=== PATIENT | female | born 1965 ===

== ENCOUNTER 2024-04-09 06:11 | Day surgery (SDC) | payer OTHER, SELFPAY | END 2024-04-09 09:37 | disposition home or self-care (01) | LOC: GI 06:11 | PROVIDERS: ATTENDING PHYSICIAN Internal Medicine | DX: Z12.11 Encounter for screening for malignant neoplasm of colon (principal); D12.7 Benign neoplasm of rectosigmoid junction; K57.30 Diverticulosis of large intestine without perforation or abscess without bleeding | CPT/HCPCS: 45385; 88305 ==